=== PATIENT | male | born 1985 | race Caucasian/White ===

== ENCOUNTER 2017-04-12 20:53 | Emergency (ER) | payer SELFPAY ==
--- NOTE | 2017-04-12 21:17 | RAD ---
TWO VIEWS CHEST: Date: 04-12-17 Provided Clinical History: Cough. FINDINGS: Cardiac and mediastinal silhouette is within normal limits. Lungs appear clear. No pleural fluid or p neumothorax apparent. IMPRESSION: No evidence for an acute cardiopulmonary process. POS: [facility]
[2017-04-12] MEDS ORDERED: Dexamethasone 4 mg/ml Vial ONE (21:49)
== END 2017-04-12 22:02 | disposition home or self-care (01) ==
LOC: ERS 20:53
DX: J20.9 Acute bronchitis, unspecified (principal); J02.9 Acute pharyngitis, unspecified; F41.9 Anxiety disorder, unspecified; Z71.6 Tobacco abuse counseling; F17.210 Nicotine dependence, cigarettes, uncomplicated
CPT/HCPCS: 71020; 94640; 99406; J1100; J7620

== ENCOUNTER 2017-05-11 23:07 | Emergency (ER) | payer SELFPAY ==
[2017-05-11] MEDS ORDERED: Ketorolac Tromethamine 30 MG/ML VIAL ONE (23:54)
== END 2017-05-12 00:01 | disposition home or self-care (01) ==
LOC: ERS 23:07
DX: K03.81 Cracked tooth (principal); F41.9 Anxiety disorder, unspecified; F17.210 Nicotine dependence, cigarettes, uncomplicated
CPT/HCPCS: 96372; J1885

== ENCOUNTER 2018-07-20 15:29 | Emergency (ER) | payer SELFPAY | END 2018-07-20 16:35 | disposition home or self-care (01) | LOC: ERS 15:29 | DX: H60.91 Unspecified otitis externa, right ear (principal); F41.9 Anxiety disorder, unspecified; F17.210 Nicotine dependence, cigarettes, uncomplicated | CPT/HCPCS: 99406 ==

== ENCOUNTER 2024-04-13 21:37 | Emergency (ER) | payer SELFPAY | END 2024-04-13 22:45 | disposition home or self-care (01) | LOC: ERS 21:37 | DX: B86 Scabies (principal); F17.210 Nicotine dependence, cigarettes, uncomplicated | CPT/HCPCS: 99282 ==